=== PATIENT | female | born 1945 ===

== ENCOUNTER 2018-10-14 08:26 | Outpatient (CLI) | payer MEDICARE, MEDICAID | END 2018-10-14 08:27 | disposition home or self-care (01) | LOC: C.MAMMO 08:26 | DX: Z12.31 Encounter for screening mammogram for malignant neoplasm of breast (principal); I10 Essential (primary) hypertension; E11.9 Type 2 diabetes mellitus without complications; E55.9 Vitamin D deficiency, unspecified; E07.9 Disorder of thyroid, unspecified; E78.9 Disorder of lipoprotein metabolism, unspecified; N39.0 Urinary tract infection, site not specified ==